=== PATIENT | female | born 1990 | race Caucasian/White ===

== ENCOUNTER 2016-12-03 17:28 | Emergency (ER) | payer OTHER ==
[~2016-12-03] VITALS: Ht 170.2 cm; Wt 124.5 kg
[~2016-12-03 17:28] MED LIST: ACET-171 PO; HYDR2TAB27 PO; ONDA4TAB12 PO
[2016-12-03 17:30] VITALS: BP 180/97; PULSE 104; RESP 26; O2SAT 100
--- NOTE | 2016-12-03 18:09 | ED.REPORT ---
HPI-Dyspnea / Wheezing Date of Service Dec 03, 2016 ED Provider: Sean Simmons DO Pt is a 26 year old female with a history of DM and HTN who presents to the ED complaining of SOB onset 3 days ago. She c/o associated cough with yellow/green/ brown phlegm, nasal congestion, dyspnea, and intermittent right calf pain onset 1 month ago. She denies cough with blood. Her right calf pain is exacerbated with stretching. The pt presented to Urgent Care with her symptoms and was referred to the ED for concerns of PE. She denies pregnancies and smoking. Pt denies a history of pulmonary embolism. Nursing Notes Stated Complaint: SOB, CALF PAIN Chief Complaint: Respiratory Distress Nursing Notes Reviewed: Yes Allergies: Coded Allergies: Contrast Media (Verified Allergy, Severe, Hives, 11/05/15) DURING WRIST PROCEDURE Penicillins (Verified Allergy, Intermediate, Rash, 11/05/15) Scheduled Acetaminophen (Acetaminophen) 500 Mg Tablet 1,000 MG PO Q6H Scheduled PRN Hydromorphone (Dilaudid) 2 Mg Tablet 2-4 MG PO Q3H PRN PRN For Pain Ondansetron ODT (Ondansetron ODT) 4 Mg Tab.rapdis 4 MG PO QID PRN PRN For Nausea General Time Seen by MD: 18:08 Chief Complaint Shortness of breath Hx Obtained From: Patient Arrived By: Walk-in Sudden in Onset?: No Onset Occurred: 3 days ago Symptom Duration: Since onset Severity: Current: No pain currently Severity: Maximum: No pain Recent Healthcare: Recent doctor visit Similar Sx Previous: No Past Medical History Past Medical History cholelithiasis Reports: Diabetes mellitus, Hypertension Reports: Depression Past Surgical History D&C x1 UTI 1x Reports: Family History non-contributory Smoking History Never Smoker Social History Alcohol Use: "Social" Drug Use: Denies drug use Ambulatory Status Independent Review of Systems Ears / Nose / Throat: Reports: Nasal congestion Respiratory: Reports: Dyspnea on exertion, Prod cough, brown, Prod cough, green , Prod cough, yellow, Shortness of breath, Denies: Prod cough, bloody Musculoskeletal: Reports: Extremity pain (right calf) Complete sys rev & neg: except as marked. Physical Exam Initial Vital Signs Vital Signs (First) Date Time Temp Pulse Resp B/P Pulse Ox O2 Delivery O2 Flow Rate FiO2 12/03/16 17:30 36.7 104 26 180/97 100 Room Air Initial VS: Reviewed Head / Eyes: Atraumatic, Normocephalic Abdomen / GI: Soft, Non-tender Skin: Warm, Dry, No cyanosis Neurologic: Alert, Oriented, Nonfocal Psychiatric: Mood/affect normal, Behavior normal General/Constitutional: Awake, Alert, Cooperative Neck: Atraumatic, Full range of motion Respiratory / Chest: Atraumatic, Breath sounds NL, Breath sounds = bilat Cardiovascular: Heart rate NL, Regular rhythm, Heart sounds NL Lower Extremity / Pelvis / MS: Neurologic intact, Vascular intact Mild pain with compression of right calf Upper Extremity / MS: Neurologic intact, Vascular intact Interpretation & Diagnostics US VEINOUS LEG DUPLEX UNILATERAL, RIGHT: IMPRESSION: No evidence of deep venous thrombosis. Dictated by: Ivana Biggs M.D. on 12/03/2016 at 19:27 Lab Results Interpretation Result Diagram: 12/03/16181412/03/161814 Test 12/03/16 18:15 White Blood Count 9.9th/mm3 (3.8-10.1) Red Blood Count 4.68mil/mm3 (3.90-5.20) Hemoglobin 12.9g/dL (12.0-15.6) Hematocrit 39.2% (35.0-46.0) Mean Corpuscular Volume 83.8fL (81-100) Mean Corpuscular Hemoglobin 27.6pg (27.0-35.0) Mean Corpuscular Hemoglobin Concent 32.9% (32.0-37.0) Red Cell Distribution Width 14.2% (12.3-15.4) Platelet Count 298bil/L (150-400) Neutrophils (%) (Auto) 69.4% (40-74) Lymphocytes (%) (Auto) 21.5% (14-46) Monocytes (%) (Auto) 7.3% (4-12) Eosinophils (%) (Auto) 1.3% (0-5) Basophils (%) (Auto) 0.2% (0-3) D-Dimer < 0.50mg/L FEU (<0.50) Sodium Level 140mEq/L (134-144) Potassium Level 3.8mEq/L (3.5-5.2) Chloride Level 103mEq/L (97-108) Carbon Dioxide Level 23mmol/L (18-29) Blood Urea Nitrogen 11mg/dL (6-20) Creatinine 0.58mg/dL (0.57-1.00) Estimat Glomerular Filtration Rate 177mL/min (>59) Glucose Level 110mg/dL (60-99) Calcium Level 9.1mg/dL (8.5-10.1) Total Bilirubin 0.2mg/dL (0.0-1.2) Aspartate Amino Transf (AST/SGOT) 21U/L (0-50) Alanine Aminotransferase (ALT/SGPT) 28U/L (0-32) Alkaline Phosphatase 79U/L (25-150) Total Protein 7.6g/dL (6.4-8.4) Albumin 4.0g/dL (3.4-5.0) Hold [place] Top Tube Received (Received) Re-Eval/Medical Decision Med Decision/Clinical Course Negative ultrasound, negative d-dimer and all pulmonary emboli rule out criteria met. Angiogram not indicated. Clearly she has clinical bronchitis and sinusitis. She will be placed on a Z-David due to her beta-lactamase allergy. Close outpatient follow-up. Source of Hx: Old records Re-Evaluation/Progress : Time of Eval: 19:49 Re-Evaluation/Progress Note: Pt rechecked. Informed pt of plan for discharge. Pt understands and agrees with plan for discharge. F/U instructions and RTER warnings given. All questions addressed. Counseled Regarding: Diagnosis, Lab results, Need for follow-up, When/why to return to ED Discharge & Departure Impression: Primary Impression: Sinusitis Sinusitis location: unspecified location Chronicity: unspecified Qualified Code: J32.9 - Chronic sinusitis, unspecified Additional Impression: Bronchitis Disposition: Home Discharge Condition All VS Reviewed: Yes Condition: Stable Patient Instructions: Acute Bronchitis (ED), Sinusitis (ED) Additional Instructions: You have sinusitis. Finish your z-pack. Take naproxen for your foot pain. Follow up with your primary care provider in 1 week. Return to the Emergency Department for any new or worsening symptoms. Referrals: Sultana Byers (PCP) [facility] Scribe Attestation Portions of this note were transcribed by Tia Oliver. I, Dr. Simmons personally performed the history, physical exam and medical decision-making; I reviewed and confirmed the accuracy of the information in the transcribed note. Signed by : Raghu Kurse, 12/03/16 and 20:30. copies to: Sultana Byers; [facility] Sean Simmons DO Dec 03, 2016 18:09 Tia Rodriguez Dec 03, 2016 18:23
[2016-12-03 18:38] LABS: BASOPHILS % (AUTO) 0.2 % (0-3); EOSINOPHILS % (AUTO) 1.3 % (0-5); MONOCYTES % (AUTO) 7.3 % (4-12); Mean Corpuscular Hemoglobin 27.6 pg (27.0-35.0); Mean Corpuscular Volume 83.8 fL (81-100); NEUTROPHILS % (AUTO) 69.4 % (40-74); Platelet Count 298 bil/L (150-400)
--- NOTE | 2016-12-03 19:29 | DRSVH ---
PROCEDURE: US VEINOUS LEG DUPLEX UNILATERAL, RIGHT INDICATIONS: right calf pain TECHNIQUE: Real-time imaging, as well as color and pulse Doppler interrogation, were performed of the lower extr emity deep veins from the inguinal ligament to the popliteal fossa. COMPARISON: None. FINDINGS: The deep veins are normally compressible, and free of intraluminal thrombus. Color and pu lse Doppler demonstrate normal phasic intraluminal flow. There is normal augmentation response to di stal compression maneuver. IMPRESSION: No evidence of deep venous thrombosis. Dictated by: Ivana Biggs M.D. on 12/03/2016 at 19:27 Approved by: Ivana Biggs M.D. on 12/03/2016 at 19:27
[2016-12-03 19:44] VITALS: BP 147/92; PULSE 87; RESP 20; O2SAT 99
[2016-12-03 19:58] VITALS: BP 147/92; PULSE 87; RESP 20; O2SAT 99
[2016-12-04] MEDS ORDERED: Sodium Chloride LOK Flush 10 mL Syringe IVFLUSH SCH (00:30)
== END 2016-12-03 20:00 | disposition home or self-care (01) ==
LOC: SED 17:28
DX: J32.9 Chronic sinusitis, unspecified (principal); J40 Bronchitis, not specified as acute or chronic; E11.9 Type 2 diabetes mellitus without complications; I10 Essential (primary) hypertension; Z88.0 Allergy status to penicillin; Z91.041 Radiographic dye allergy status

== ENCOUNTER 2016-12-06 14:30 | Emergency (ER) | payer OTHER ==
[~2016-12-06] VITALS: Ht 170.2 cm; Wt 123.2 kg
[2016-12-06 14:37] VITALS: BP 144/93; PULSE 93; RESP 14; O2SAT 98
--- NOTE | 2016-12-06 15:46 | ED.REPORT ---
HPI-URI / Cough / Cold Date of Service Dec 06, 2016 ED Provider: Doc,Ed MD History of Present Illness: 26-year-old female here for URI symptoms. She was seen here on 12/03/2016. Placed on a Z-David. Not improved. She is still having palpable fever, cough and chest pressure worse when lying flat. She has been fatigued and not wanting to do much. She has had bad nasal congestion and sinus pressure. Nursing Notes Stated Complaint: COLD LIKE SYMPTOMS Chief Complaint: Respiratory Complaints Nursing Notes Reviewed: Yes Allergies: Coded Allergies: Contrast Media (Verified Allergy, Severe, Hives, 11/05/15) DURING WRIST PROCEDURE Penicillins (Verified Allergy, Intermediate, Rash, 11/05/15) Scheduled Acetaminophen (Acetaminophen) 500 Mg Tablet 1,000 MG PO Q6H Fluticasone Propionate (Flonase Allergy Relief) 50 Mcg/Actuation [place].susp 9.9 ML NS BID Guaifenesin/Codeine Phosphate (Guaifenesin-Codeine Syrup) 5 Ml Liquid 5 ML PO HS Guaifenesin/Dextromethorphan (Robitussin Cough-Chest Dm Liq) 100 Mg-5 Mg/5 Ml Liquid 237 ML PO QID Scheduled PRN Hydromorphone (Dilaudid) 2 Mg Tablet 2-4 MG PO Q3H PRN PRN For Pain Ondansetron ODT (Ondansetron ODT) 4 Mg Tab.rapdis 4 MG PO QID PRN PRN For Nausea Miscellaneous Medications ([robitussin ac]) General Time Seen by MD: 15:46 Chief Complaint Upper resp infection Hx Obtained From: Patient Arrived By: Walk-in Onset Occurred: 1 week ago Context of Onset: Recent antibiotic use Symptom Duration: Constant Location: : Chest Quality: Pleuritic, Pressure Severity: Current: Moderate Severity: Maximum: Moderate Recent Healthcare: Recent doctor visit Similar Sx Previous: Yes Past Medical History Past Medical History cholelithiasis Reports: Diabetes mellitus, Hypertension Reports: Depression Past Surgical History D&C x1 UTI 1x Reports: Family History non-contributory Smoking History Never Smoker Social History Alcohol Use: "Social" Drug Use: Denies drug use Ambulatory Status Independent Review of Systems Basic Review of Systems Musculoskeletal: No extremity swelling, No extremity pain, Full range of motion , Joints NL Psychiatric: Normal thought content Constitutional: Reports: Chills, Fatigue, Fever (palpable fever) Ears / Nose / Throat: Reports: Earache right, Nasal congestion, Sinus problem, Throat pain Respiratory: Reports: Dyspnea on exertion, Pleuritic pain, Prod cough, bloody, Prod cough, green Complete sys rev & neg: except as marked. Physical Exam Initial Vital Signs Vital Signs (First) Date Time Temp Pulse Resp B/P Pulse Ox O2 Delivery O2 Flow Rate FiO2 12/06/16 14:37 36.8 93 14 144/93 98 Room Air Initial VS: Reviewed, Vital signs normal General/Constitutional: Awake, Alert, Well appearing ENT: Airway patent, Mucous membranes moist, Pharynx NL, Tympanic membs NL, Ext aud canal NL, Nose exam NL, No sinus tenderness sinus tenderness throughout Respiratory / Chest: Breath sounds NL, Breath sounds = bilat, No respiratory distress, No rales, No rhonchi, No wheezing, No retractions, No stridor Head / Eyes: Normocephalic, PERRL Neck: Supple, No meningismus, Full range of motion, No adenopathy, No swelling , Non-tender Cardiovascular: Heart rate NL, Regular rhythm, Heart sounds NL, Peripheral circulation NL Skin: Color NL, No rash, Warm, Dry, Turgor NL Interpretation & Diagnostics X-Ray Chest Interpretation Chest Xray Interpretation: PROCEDURE: X-RAY CHEST, TWO VIEWS ([id number]) INDICATIONS: SOB, cough TECHNIQUE: 2 views of the chest were acquired. COMPARISON: [facility], CR, XR CHEST 2VW, 12/03/2016, 17:02. FINDINGS: Surgical changes and devices: None. Lungs and pleura: No pleural effusions or pneumothorax. Lungs are clear. Mediastinum: Mediastinal contours are normal. Heart size is normal. Bones and chest wall: No suspicious bony abnormalities. Soft tissues appear unremarkable. IMPRESSION: No radiographic evidence of acute cardiopulmonary pathology. Re-Eval/Medical Decision Med Decision/Clinical Course Med Decision/Clinical Course: Discussed course of illness for an upper respiratory infection. She has 1 day left, tomorrow of Z-David she will finish that. We will write her for prescriptions for supportive care cold medicines as she states she has no money to buy any treatments on her own. Discharge & Departure Impression: Primary Impression: Upper respiratory infection URI type: unspecified viral URI Qualified Code: J06.9 - Acute upper respiratory infection, unspecified Discharge Condition All VS Reviewed: Yes Condition: Stable Patient Instructions: Upper Respiratory Infection (ED) Additional Instructions: It was a pleasure taking care of you today. Do supportive care as discussed. 600 mg of ibuprofen 3 times a day for pain or fever. Lots of fluids and rest. Finish her Z-David. Use the Robitussin-AC for nighttime cough. Daytime cough medicine as needed. Flonase twice a day 2 weeks or until symptoms are gone. Consider doing a [place] pot or nasal saline rinse as well. Return or see her PCP if fevers over 104, continued symptoms in 1 week. Referrals: Sultana Byers (PCP) EDSupervising Provider for APC: Raman Trujillo MD, Linnea K ARNP Dec 06, 2016 15:46
--- NOTE | 2016-12-06 15:52 | DRSVH ---
PROCEDURE: X-RAY CHEST, TWO VIEWS ([id number]) INDICATIONS: SOB, cough TECHNIQUE: 2 views of the chest were acquired. COMPARISON: [facility], CR, XR CHEST 2VW, 12/03/2016, 17:02. FINDINGS: Surgical changes and devices: None. Lungs and pleura: No pleural effusions or pneumothorax. Lungs are clear. Mediastinum: Mediastinal contours are normal. Heart size is normal. Bones and chest wall: No suspicious bony abnormalities. Soft tissues appear unremarkable. IMPRESSION: No radiographic evidence of acute cardiopulmonary pathology. Dictated by: Vivek Ward M.D. on 12/06/2016 at 15:49 Approved by: Vivek Ward M.D. on 12/06/2016 at 15:50
[2016-12-06] MEDS ORDERED: robitussin ac (16:36)
[2016-12-06] MEDS ORDERED: GUAI5LIQ PO (16:36)
[2016-12-06] MEDS ORDERED: GUAI237L83 PO (16:37)
[2016-12-06] MEDS ORDERED: FLUT9.9S NS (16:39)
[2016-12-06 16:47] VITALS: BP 151/100; PULSE 76; RESP 20; O2SAT 99
== END 2016-12-06 16:49 ==
LOC: SED 14:30
DX: J06.9 Acute upper respiratory infection, unspecified (principal); R07.89 Other chest pain; R53.83 Other fatigue; I10 Essential (primary) hypertension; E11.9 Type 2 diabetes mellitus without complications; F32.9 Major depressive disorder, single episode, unspecified; Z88.0 Allergy status to penicillin; Z91.041 Radiographic dye allergy status